=== PATIENT | female | born 1955 | race Caucasian/White ===

== ENCOUNTER 2019-02-08 14:31 | Emergency (ER) | payer OTHER ==
[~2019-02-08] VITALS: Ht 160 cm; Wt 84.8 kg
== END 2019-02-08 15:16 | disposition home or self-care (01) ==
LOC: FSED 14:31
DX: J01.10 Acute frontal sinusitis, unspecified (principal); I10 Essential (primary) hypertension
CPT/HCPCS: 99282

== ENCOUNTER → 2019-08-07 | Outpatient (CLI) | payer OTHER | LOC: MAMMO 13:51 | PROVIDERS: ATTEND Internal Medicine | DX: Z12.31 Encounter for screening mammogram for malignant neoplasm of breast (principal) | CPT/HCPCS: 77067 ==

== ENCOUNTER 2020-02-11 16:18 | Emergency (ER) | payer OTHER ==
[~2020-02-11] VITALS: Ht 160 cm; Wt 88.5 kg
--- OUTSIDE RECORDS SUMMARY | 2020-02-11 16:22 | XMS REPORT ---
[facility] Address Unknown Phone Unavailable Care Team Providers Care Manager Income Tax Name Role Phone Dusty STEWART Unavailable Unavailable Problems This patient has no known problems. Allergies, Adverse Reactions, Alerts This patient has no known allergies or adverse reactions. Medications This patient has no known medications. Results Test Description Test Time Test Comments Text Results Atomic Results Result Comments MAMMOGRAPHY DIGITAL SCR BILAT 2019-08-07 15:08:00 [place] [address] Patient Name: JIGAR ZAMAN MR #: [id number] : 1955 Age/Sex: 63/F Req #: [id number] [facility] Physician: Ordered by: ETHAN STEWART M.D. Report #: [id number] Location: MAMMO Room/Bed: Procedure: MG/MAMMOGRAPHY DIGITAL SCR BILAT Exam Date: 08/07/19 Exam Time: 1455 REPORT STATUS: Signed #[id number] - [id number] #BILATERAL DIGITAL SCREENING MAMMOGRAM WITH CAD: 08/07/2019 CLINICAL: Routine screening. Comparison is made to exams dated: 08/03/2016 mammogram and 01/04/2014 mammogram - Sydnie Drew. There are scattered fibroglandular elements in both breasts. Current study was also evaluated with a Computer Aided Detection (CAD) system. There are benign calcifications in the right breast. No significant masses, calcifications, or other findings are seen in either breast. There has been no significant interval change. IMPRESSION: BENIGN There is no mammographic evidence of malignancy. A 1 year screening mammogram is recommended. The patient will be notified by letter of the results. RODRIGUEZ ash/olivia:08/22/2019 11:52:22 [employer]: Zaida ERICKSON)(Batsheva), [facility] letter sent: Compared to Prior B9 Mammogram BI-RADS: 2 Benign Dictated By: RODRIGUEZ HAZEL MD 1152 Transcribed By: OLIVIA on 08/22/19 1152 COPY TO: ETHAN STEWART M.D.
[2020-02-11] MEDS ORDERED: LASIX20 MG PO (16:33)
--- NOTE | 2020-02-11 17:32 | Diagnostic Imaging Report ---
Exam: Right knee 2 views History: Knee pain Comparison: None. Findings: No fracture or malalignment. Joint space narrowing most prominent in the medial tibiofemoral compartment. Nonaggressive sclerosis in the proximal fibula. Impression: No acute osseous abnormality Moderate degenerative arthrosis of the knee Signed by: Dr. Morales Farias M.D. on 02/11/2020 5:29 PM
--- NOTE | 2020-02-11 18:23 | Diagnostic Imaging Report ---
EXAMINATION :Right lower extremity venous Doppler exam. CLINICAL INDICATION: Swelling COMPARISON: None DISCUSSION: Christie scale, color Doppler and spectral waveform analysis of the right lower extremity deep venous system was performed. The right common femoral, superficial femoral and popliteal veins are compressible and demonstrate normal spontaneous phasic waveforms and normal response to augmentation. No filling defects are seen. IMPRESSION: No deep venous thrombosis above the right calf. Signed by: Dr. Morales Farias M.D. on 02/11/2020 6:20 PM
== END 2020-02-11 18:59 | disposition home or self-care (01) ==
LOC: FSED 16:18
DX: M79.651 Pain in right thigh (principal); M25.561 Pain in right knee; M79.661 Pain in right lower leg; M17.11 Unilateral primary osteoarthritis, right knee
CPT/HCPCS: 93971; 99283

== ENCOUNTER → 2020-11-18 | Outpatient (CLI) | payer OTHER ==
[~2020-11-18] MED LIST: COVID-19 VACC, MRNA(MODERNA)/PF 100 MCG/0.5 ML VIAL IM ONE; LASIX20 MG PO
== END ==
LOC: VACCPMC 18:10
DX: Z23 Encounter for immunization (principal); Z20.828 Contact with and (suspected) exposure to other viral communicable diseases

== ENCOUNTER → 2020-12-26 | Outpatient (CLI) | payer OTHER | END | DRG 951 | LOC: VACCPMC 08:16 | DX: Z23 Encounter for immunization (principal); Z20.822 Contact with and (suspected) exposure to COVID-19 | CPT/HCPCS: 0012A; 91301 ==